=== PATIENT | male | born 1965 | race Caucasian/White ===

== ENCOUNTER 2021-06-03 17:07 | Emergency (ER) | payer BC ==
[2021-06-03] MEDS ORDERED: Sodium Chloride 0.9% 10 ML Syringe FLUSH PRN (17:23)
[2021-06-03] MEDS ORDERED: Aspirin 81 MG Tab.Chew PO ONE (17:23)
== END 2021-06-03 19:16 | disposition home or self-care (01) ==
LOC: JD.ED 17:07
DX: R07.89 Other chest pain (principal); E78.00 Pure hypercholesterolemia, unspecified; Z79.899 Other long term (current) drug therapy
CPT/HCPCS: 36415; 71045; 80053; 83735; 84484; 85025; 85379; 85610; 99285; A9270; J3490; 93010